=== PATIENT | female | born 1970 | race Hispanic/Latino ===

== ENCOUNTER → 2017-04-13 | Outpatient (CLI) | payer BC ==
--- NOTE | 2017-04-13 15:03 | Diagnostic Imaging Report ---
PROCEDURE: Frontal and lateral views of the chest. COMPARISON: 11/04/11 INDICATIONS: COUGH AND CHEST PAIN FINDINGS: Lines/tubes: None. Lungs: The lungs are well inflated and clear. There is no evidence of pneumonia or pulmonary edema. Pleura: There is no pleural effusion or pneumothorax. Heart and mediastinum: The heart and the mediastinum are normal. Bones: No acute bony abnormality. IMPRESSION: 1. No acute cardiopulmonary disease. Dictated by: Twin Ash M.D. on 04/13/2017 at 15:03 Electronically approved by: Twin Ash M.D. on 04/13/2017 at 15:03
== END ==
LOC: RAD 14:25
PROVIDERS: ATTEND Family Medicine
DX: R05 Cough (principal)
CPT/HCPCS: 71046

== ENCOUNTER → 2017-09-04 | Outpatient (CLI) | payer BC | LOC: MAMMO 11:02 | PROVIDERS: ATTEND Obstetrics & Gynecology | DX: Z12.31 Encounter for screening mammogram for malignant neoplasm of breast (principal) | CPT/HCPCS: 77067 ==

== ENCOUNTER 2017-12-02 05:04 | Inpatient (IN) | payer BC ==
[~2017-12-02] VITALS: Ht 167.6 cm; Wt 75.0 kg
--- OUTSIDE RECORDS SUMMARY | 2017-12-02 05:06 | XMS REPORT ---
[facility] Address Unknown Phone Unavailable Care Team Providers Care Front Desk Team Member Name Role Phone FLACA FERRER Unavailable Unavailable MEGAN MATHUR Unavailable Unavailable Problems This patient has no known problems. Allergies, Adverse Reactions, Alerts This patient has no known allergies or adverse reactions. Medications This patient has no known medications. Results Test Description Test Time Test Comments Text Results Atomic Results Result Comments MAMMOGRAPHY DIGITAL SCR BILAT 2017-09-04 12:45:00 [place] [address] Patient Name: TOMA SIMMONS MR #: [id number] : 1970 Age/Sex: 47/F Req #: [id number] [facility] Physician: Ordered by: FLACA FERRER MD Report #: [id number] Location: MAMMO Room/Bed: Procedure: [id number] MG/MAMMOGRAPHY DIGITAL SCR BILAT Exam Date: 09/04/17 Exam Time: 1106 REPORT STATUS: Signed #[id number] - [id number] #BILATERAL DIGITAL SCREENING MAMMOGRAM WITH CAD: 09/04/2017 CLINICAL: Routine screening. Comparison is made to exams dated: 05/01/2016 mammogram and 03/19/2015 mammogram - [facility]. Current study contains 8 films. There are scattered fibroglandular elements in both breasts. Current study was also evaluated with a Computer Aided Detection (CAD) system. There is a benign calcification in both breasts. Bilateral breast implants are stable. No significant masses, calcifications, or other findings are seen in either breast. There has been no significant interval change. IMPRESSION: BENIGN There is no mammographic evidence of malignancy. A 1 year screening mammogram is recommended. The patient will be notified by letter of the res ults. Howard baumann/monica:09/24/2017 07:52:32 [place]: Elena HERNANDEZ(R)(M), [facility] letter sent: Compared to Prior B9 Mammogram BI-RADS: 2 Benign Dictated By: HOWARD DENNIS DO 1 Transcribed By: MONICA on 09/24/17751 COPY TO: FLACA FERRER MD CHEST 2 VIEWS [place] [address] Patient Name: TOMA SIMMONS MR #: [id number] : 1970 Age/Sex: 46/F Req #: [id number] Adm Physician: Ordered by: MEGAN MATHUR MD, MD Report #: [id number] Location: [facility] Room/Bed: Procedure: [id number] DX/CHEST 2 VIEWS Exam Date: 04/13/17 Exam Time: 1445 REPORT STATUS: Signed PROCEDURE: Frontal and lateral views of the chest. COMPARISON: 11/04/11 INDICATIONS: COUGH AND CHEST PAIN FINDINGS: Lines/tubes: None. Lungs: The lungs are well inflated and clear. There is no evidence of pneumonia or pulmonary edema. Pleura: There is no pleural effusion or pneumothorax. Heart and mediastinum: The heart and the mediastinum are normal. Bones: No acute bony abnormality. IMPRESSION: 1. No acute cardiopulmonary disease. Dictated by: Twin Anthony M.D. on 04/13/2017 at 15:03 Electronically approved by: Twin Anthony M.D. on 04/13/2017 at 15:03 Dictated By: TWIN ANTHONY MD 1503 Transcribed By: FLORENTINO on 04/13/17 1503 COPY TO: MEGAN MATHUR
[2017-12-02] MEDS ORDERED: GENTAMICIN 80MG/NS 100 ML 200 ML IV ONE (05:14)
[2017-12-02] MEDS ORDERED: CLINDAMYCIN 600MG / 50ML 50 ML IV ONE (05:14)
[2017-12-02] MEDS ORDERED: CEFOXITIN SOD 1 GM VIAL ONE (05:14)
[2017-12-02] MEDS ORDERED: METHYLENE BLUE 1% INJ 10 ML VIAL INJ ONE (06:34)
[2017-12-02] MEDS ORDERED: IOPAMIDOL 610MG/1ML 300 MG/ML VIAL IV ONE (06:35)
[2017-12-02] MEDS ORDERED: BUPIVACAINE 0.25%/EPI 30ML SDV INJ ONE (06:35)
[2017-12-02] MEDS ORDERED: BACITRACIN 50,000 UNIT VIAL ONE (06:35)
[2017-12-02] MEDS ORDERED: MUPIROCIN 2% OINT 22 GM TUBE ONE (06:35)
[2017-12-02] MEDS ORDERED: CEFOXITIN 1GM/ NS 50ML 50 ML IV SCH (08:30)
[2017-12-02] MEDS ORDERED: NALOXONE HCL INJ 0.4 MG/ML AMP IV PRN (08:30)
[2017-12-02] MEDS ORDERED: MORPHINE SULFATE 1 MG/ML 30ML PCA IV PRN (08:30)
[2017-12-02] MEDS ORDERED: DIPHENHYDRAMINE HCL INJ 50 MG/ML VIAL IM PRN (08:30)
[2017-12-02] MEDS ORDERED: DIPHENHYDRAMINE HCL 25 MG CAP PO PRN (08:30)
[2017-12-02] MEDS ORDERED: MORPHINE SULFATE 2 MG/ML SYR ONE (08:52)
[2017-12-02 11:30] VITALS: BP 97/54
[2017-12-02 12:01] VITALS: BP 97/54
[2017-12-02] MEDS: CLINDAMYCIN 300MG 50 ML IV SCH ×2 (13:48→21:31)
[2017-12-02] MEDS: DOCUSATE SODIUM 100 MG CAP PO SCH ×2 (13:48→17:52)
[2017-12-02] MEDS: D5.45%NS/KCL 20MEQ 1,000 ML IV SCH ×3 (13:49→22:40)
[2017-12-02] MEDS ORDERED: FENTANYL CITRATE/PF 100MCG/2 ML INJ ONE (15:53)
[2017-12-02] MEDS ORDERED: MIDAZOLAM HCL 2 MG/2 ML VIAL ONE (15:53)
[2017-12-02 16:06] VITALS: BP 86/52
[2017-12-02 16:38] VITALS: BP 90/55
[2017-12-02] MEDS: CEFOXITIN SOD 1 GM VIAL IV SCH (17:52)
[2017-12-02] MEDS ORDERED: PROPOFOL IV EMULSION 10 MG/ML 20 ML VIAL ONE (18:09)
[2017-12-02] MEDS ORDERED: SEVOFLURANE INHAL SOLN 250 ML PEN BTL ONE (18:09)
[2017-12-02] MEDS ORDERED: DEXAMETHASONE SOD PHOS INJ 4 MG/ML VIAL ONE (18:09)
[2017-12-02] MEDS ORDERED: ONDANSETRON HCL INJ 2 MG/ML VIAL ONE (18:09)
[2017-12-02] MEDS ORDERED: LIDOCAINE HCL 2% LOCAL INJ 5 ML SDV VIAL INJ ONE (18:09)
[2017-12-02] MEDS ORDERED: EPHEDRINE SULFATE INJ 50 MG/10 ML SYR ONE (18:09)
[2017-12-02 20:40] VITALS: BP 99/57
[2017-12-02 20:49] VITALS: BP 99/57
[2017-12-03] VITALS (8 sets, daily range): BP systolic 86–98; BP diastolic 49–54
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
[2017-12-03 05:40] LABS: BASOPHILS % 0.3 % (0.0-1.0); EOSINOPHILS % 0.3 % (0.0-6.0); HEMOGLOBIN 9.3 g/dL (12.0-16.0); LYMPHOCYTES # (AUTO) 3.4 (1.0-3.2); LYMPHOCYTES % 21.7 % (18.0-39.1); MEAN CORPUSCULAR HEMOGLOBIN 32.3 pg (28-32); MEAN CORPUSCULAR HGB CONC 33.2 g/dL (31-35); MEAN CORPUSCULAR VOLUME 97.2 fL (81-99); MONOCYTES # (AUTO) 1.3 (0.2-0.8); MONOCYTES % 8.6 % (4.4-11.3); NEUTROPHILS # (AUTO) 10.7 (2.1-6.9); NEUTROPHILS % 68.7 % (38.7-80.0); PLATELET COUNT 310 x10e3/uL (140-360); RED BLOOD COUNT 2.88 x10e6/uL (3.6-5.1); RED CELL DISTRIBUTION WIDTH 13.6 % (11.7-14.4)
[2017-12-03] MEDS: CEFOXITIN SOD 1 GM VIAL IV SCH ×2 (05:56→17:36)
[2017-12-03 06:06] LABS: ANION GAP 12.4 mmol/L (8-16); BLOOD UREA NITROGEN 5 mg/dL (7-26); BUN/CREATININE RATIO 9 (6-25); CALCIUM 8.2 mg/dL (8.4-10.2); CARBON DIOXIDE 21 mmol/L (22-29); CHLORIDE 104 mmol/L (98-107); CREATININE, SERUM 0.56 mg/dL (0.57-1.11); EST GLOMERULAR FILTRATION RATE > 60 ML/MIN (60-); GLUCOSE 100 mg/dL (74-118); POTASSIUM 4.4 mmol/L (3.5-5.1); SODIUM 133 mmol/L (136-145)
[2017-12-03] MEDS: CLINDAMYCIN 300MG 50 ML IV SCH ×3 (06:20→21:48)
[2017-12-03] MEDS: D5.45%NS/KCL 20MEQ 1,000 ML IV SCH ×2 (08:16→18:12)
[2017-12-03] MEDS: ONDANSETRON HCL INJ 2 MG/ML VIAL IV PRN (09:01)
[2017-12-03] MEDS ORDERED: HYDROMORPHONE 2MG/ML 2 MG/ML ML IV PRN (09:15)
[2017-12-03] MEDS ORDERED: HYDROMORPHONE 1MG/1ML INJ IV PRN (09:15)
[2017-12-03] MEDS: ACETAMINOPHEN 325 MG TAB PO PRN ×3 (09:45→23:07)
[2017-12-03] MEDS: DOCUSATE SODIUM 100 MG CAP PO SCH ×2 (09:45→17:36)
[2017-12-04] VITALS (8 sets, daily range): BP systolic 83–125; BP diastolic 51–61
--- NOTE | 2017-12-04 02:01 | Progress Note ---
DATE: December 03, 2017 INTERNAL MEDICINE PROGRESS NOTE Coverage for Dr. Jeronimo. SUBJECTIVE: Mr. Bhatia was seen and examined at bedside. She continues to have ability to walk. She is on room air FiO2. She did have emesis x1. Her diet was transiently escalated to regular diet, but this was scaled back to clears. [employer] pump was just stopped. She remains on IV fluids at 125 mL per hour. REVIEW OF SYSTEMS: No headaches, no rash. OBJECTIVE: VITAL SIGNS: Afebrile, vital signs noted per electronic record. GENERAL: In no acute distress, alert and calm. HEENT: Normocephalic, atraumatic. NECK: Supple. Throat midline. LUNGS: Bilateral air entry, clear. CARDIOVASCULAR: S1, S2. No murmurs, rubs, or gallops. ABDOMEN: Soft, nontender. EXTREMITIES: No clubbing, no cyanosis, no edema. INTEGUMENT: No rash, no purpura. LABS: 5 BUN, 0.6 creatinine. 4.4 potassium, 16 white count, 28 hematocrit. IMPRESSIONS AND PLAN: 1. Postoperative state, status post cystocele repair and graft. 2. Anemia, postoperative. 3. Postoperative emesis. 4. Leukocytosis, not otherwise specified. Repeat a complete blood cell count in the morning. Continue Freed in place. Continue the intravenous fluids, supportive treatment. Scaled back to diet clears and see if she can tolerate. Possible discharge soon if she can tolerate diet. Job#: [id number]
[2017-12-04] MEDS: CEFOXITIN SOD 1 GM VIAL IV SCH ×2 (05:36→17:10)
[2017-12-04] MEDS: CLINDAMYCIN 300MG 50 ML IV SCH ×3 (05:36→22:10)
[2017-12-04] MEDS: ACETAMINOPHEN 325 MG TAB PO PRN ×3 (05:36→22:30)
[2017-12-04 05:47] LABS: BASOPHILS # (AUTO) 0.1 (0.0-0.1); BASOPHILS % 0.6 % (0.0-1.0); EOSINOPHILS # (AUTO) 0.2 (0.0-0.4); EOSINOPHILS % 2.3 % (0.0-6.0); HEMATOCRIT 27.1 % (34.2-44.1); HEMOGLOBIN 8.8 g/dL (12.0-16.0); LYMPHOCYTES # (AUTO) 3.8 (1.0-3.2); LYMPHOCYTES % 38.4 % (18.0-39.1); MEAN CORPUSCULAR HEMOGLOBIN 32.2 pg (28-32); MEAN CORPUSCULAR HGB CONC 32.5 g/dL (31-35); MEAN CORPUSCULAR VOLUME 99.3 fL (81-99); MONOCYTES # (AUTO) 1.1 (0.2-0.8); MONOCYTES % 10.5 % (4.4-11.3); NEUTROPHILS # (AUTO) 4.8 (2.1-6.9); NEUTROPHILS % 47.9 % (38.7-80.0); PLATELET COUNT 317 x10e3/uL (140-360); RED BLOOD COUNT 2.73 x10e6/uL (3.6-5.1)
[2017-12-04 06:22] LABS: ANION GAP 10.2 mmol/L (8-16); BLOOD UREA NITROGEN 5 mg/dL (7-26); BUN/CREATININE RATIO 8 (6-25); CALCIUM 8.2 mg/dL (8.4-10.2); CARBON DIOXIDE 27 mmol/L (22-29); CHLORIDE 105 mmol/L (98-107); CREATININE, SERUM 0.61 mg/dL (0.57-1.11); EST GLOMERULAR FILTRATION RATE > 60 ML/MIN (60-); GLUCOSE 88 mg/dL (74-118); POTASSIUM 4.2 mmol/L (3.5-5.1); SODIUM 138 mmol/L (136-145)
[2017-12-04] MEDS: D5.45%NS/KCL 20MEQ 1,000 ML IV SCH (09:00)
[2017-12-04] MEDS: DOCUSATE SODIUM 100 MG CAP PO SCH ×2 (09:00→17:10)
[2017-12-04] MEDS: ONDANSETRON HCL INJ 2 MG/ML VIAL IV PRN ×2 (09:00→17:10)
[2017-12-05] VITALS: BP_SYST 88; BP_SYST 97; BP_DIAS 53; BP_DIAS 54
[2017-12-05] MEDS: D5.45%NS/KCL 20MEQ 1,000 ML IV SCH ×2 (00:44→13:44)
[2017-12-05 04:00] VITALS: BP 78/48
--- NOTE | 2017-12-05 04:07 | Progress Note ---
DATE: December 04, 2017 INTERNAL MEDICINE PROGRESS NOTE Coverage for Dr. Jeronimo. SUBJECTIVE: Ms. Bhatia was seen and examined at bedside. She was able to tolerate her clear liquid diet. She remains on IV fluids 75 mL per hour. Freed has been in place. She still has mild levels of nausea, both last night and today. Patient for this reason most likely will be discharged. REVIEW OF SYSTEMS: No bleeding and no rash. OBJECTIVE VITAL SIGNS: Afebrile, vital signs noted per electronic record. GENERAL: In no acute distress, calm in bed when I see her, although she is slightly anxious. HEENT: Normocephalic, atraumatic. NECK: Supple. Throat midline. LUNGS: Bilateral air entry, clear. CARDIOVASCULAR: S1 and S2. No murmurs, rubs, or gallops. ABDOMEN: Soft and nontender. EXTREMITIES: No clubbing, no cyanosis, and no edema. INTEGUMENT: No rash and no purpura. LABS: Potassium 4.2, 5 BUN, and 0.6 creatinine. White count 10, 27 hematocrit, and 317 platelets. IMPRESSION AND PLAN 1. Cystocele urinary. 2. Postoperative state, status post cystocele repair and graft. 3. Postoperative nausea. 4. History of recurrent urinary tract infections. Patient is on clear liquid diet today. We are going to try to increase diet. Freed trial of discontinuation. Follow up postvoid residuals. Consideration to discharge the patient tomorrow even with the Freed catheter/leg bag. Continue antiemetics. Job#: [id number] GIULIA
[2017-12-05] MEDS: CEFOXITIN SOD 1 GM VIAL IV SCH (05:23)
[2017-12-05] MEDS: CLINDAMYCIN 300MG 50 ML IV SCH ×2 (05:23→14:13)
[2017-12-05 05:39] LABS: BASOPHILS # (AUTO) 0.1 (0.0-0.1); BASOPHILS % 0.4 % (0.0-1.0); EOSINOPHILS # (AUTO) 0.2 (0.0-0.4); EOSINOPHILS % 1.3 % (0.0-6.0); HEMATOCRIT 24.9 % (34.2-44.1); HEMOGLOBIN 8.2 g/dL (12.0-16.0); LYMPHOCYTES # (AUTO) 4.9 (1.0-3.2); LYMPHOCYTES % 35.5 % (18.0-39.1); MEAN CORPUSCULAR HEMOGLOBIN 32.3 pg (28-32); MEAN CORPUSCULAR HGB CONC 32.9 g/dL (31-35); MONOCYTES % 7.5 % (4.4-11.3); NEUTROPHILS # (AUTO) 7.6 (2.1-6.9); NEUTROPHILS % 54.9 % (38.7-80.0); PLATELET COUNT 341 x10e3/uL (140-360); RED BLOOD COUNT 2.54 x10e6/uL (3.6-5.1); RED CELL DISTRIBUTION WIDTH 13.6 % (11.7-14.4)
[2017-12-05 06:20] LABS: ANION GAP 9.8 mmol/L (8-16); BLOOD UREA NITROGEN 5 mg/dL (7-26); BUN/CREATININE RATIO 8 (6-25); CALCIUM 8.4 mg/dL (8.4-10.2); CARBON DIOXIDE 27 mmol/L (22-29); CHLORIDE 104 mmol/L (98-107); CREATININE, SERUM 0.61 mg/dL (0.57-1.11); EST GLOMERULAR FILTRATION RATE > 60 ML/MIN (60-); GLUCOSE 87 mg/dL (74-118); POTASSIUM 3.8 mmol/L (3.5-5.1); SODIUM 137 mmol/L (136-145)
[2017-12-05 06:43] VITALS: BP 96/62
[2017-12-05] MEDS: DOCUSATE SODIUM 100 MG CAP PO SCH (08:02)
[2017-12-05] MEDS: ACETAMINOPHEN 325 MG TAB PO PRN (08:02)
--- NOTE | 2017-12-05 08:51 | Progress Note ---
DATE: SUBJECTIVE: Patient had urinary retention yesterday. Her Freed was replaced. She is urinating well with the Freed. Patient expressed concerns about continued pain with urination. She states she does not want to go home if the Freed catheter is still in place. OBJECTIVE VITAL SIGNS: Stable. HEENT: No facial swelling. No erythema. CARDIAC: Regular rate and rhythm with a normal S1 and S2. There are no murmurs or rubs. LUNGS: Auscultation of the lungs shows clear breath sounds bilaterally. There is no wheezing. ABDOMEN: Soft and nontender. There is no rebound or guarding. EXTREMITIES: No leg edema or calf tenderness. There is no cyanosis or clubbing. IMPRESSION 1. Urinary retention. 2. Status post operative repair of the cystocele. 3. Recurrent urinary tract infections. PLAN 1. Continue antibiotics. 2. Discussed postoperative care with urology. If possible, attempt to remove the catheter again. Job#: [id number] GIULIA
[2017-12-05 09:04] VITALS: BP 94/55
[2017-12-05 13:17] VITALS: BP 103/60
[2017-12-05] MEDS ORDERED: TYLENOL WITH C1 EACH PO (14:18)
[2017-12-05] MEDS ORDERED: LEVAQUIN500 MG PO (14:19)
[2017-12-05] MEDS ORDERED: COLACE100 MG PO (14:19)
--- NOTE | 2018-01-17 23:04 | Operative Report ---
DATE OF PROCEDURE: December 02, 2017 PREOPERATIVE DIAGNOSES 1. Stress-type urinary incontinence. 2. Severe cystocele. 3. Urinary tract infections. 4. Microhematuria. POSTOPERATIVE DIAGNOSES 1. Stress-type urinary incontinence. 2. Severe cystocele. 3. Urinary tract infections. 4. Microhematuria. OPERATIONS PERFORMED 1. Repair of large cystocele. 2. Utilization of the graft and cystocele repair. 3. Pubovaginal sling utilizing homograft. 4. Cystourethroscopy with bilateral ureteral catheterization and retrograde ureteropyelography (separate procedure performed for the hematuria and urinary tract infections). 5. Interpretation of retrograde ureteropyelography. 6. Supervision of fluoroscopy. No radiologist presents. ROD PLACER: Dr. Tamara Hunter COMPLICATIONS: None. CLINICAL SUMMARY: Carol Bhatia is a 47-year-old woman with a grade-3 to 4 cystocele. She has stress incontinence, as well as microhematuria and urinary tract infections. Patient was brought for the above procedures. She is aware of the risks of bleeding, infection, injury to adjacent structures, persistent or different incontinence, need for additional procedures, urinary retention. She elected to proceed. OPERATIVE PROCEDURE IN DETAIL: Informed consent verified. Carol Bhatia was properly identified, taken to the operating room, placed on the operating table in supine position. Anesthesia was uneventfully begun. Patient was then carefully and gently repositioned in dorsal lithotomy position with all pressure points carefully well padded. Her abdomen and genitalia and perineum were shaved, prepared, and draped in usual sterile fashion. Labial stay sutures were utilized. Marcaine with epinephrine was utilized to infiltrate submucosally in the midline of the anterior vaginal wall and also, laterally along the anterior vaginal wall. A midline incision was then made. Bilateral vaginal wall flaps were developed and carried the dissection to the cephalad most extent of the anterior vaginal wall. We then pierced the endopelvic fascia bilaterally taking care to stay as laterally as possible to avoid injuring the periurethral neurovascular complexes. We then performed repair of this very large cystocele. Heavy Vicryl suture was then utilized to approximate the 2 cut edges of the endopelvic fascia. Interrupted Vicryl sutures were utilized to accomplish this repair from the bladder neck to the cephalad most extent of the vaginal dissection. This resulted in a complete reduction of the patient's large cystocele. We then utilized a piece of fascia tea that was hydrated in antibiotic irrigant. We cut it to shape and placed a heavy PDS suture in helical fashion through each end. The bladder was drained with Freed catheter and we utilized the MyCosmik needle system to hug the posterior surface of the pubis bilaterally as we pierced from within the incision through the anterior abdominal wall. We then dragged through with the needle 1 pair of PDS sutures. This was done on each side. We then utilized 3-0 chromic suture to secure the graft in such a way as to support the entire cystocele repair. We then secured the graft to the distal most portion of the urethral dissection. This was done effectively creating a pubovaginal sling. We then utilized the MyCosmik needle system lateral suture passer to take 1 strand of each PDS suture and tunnel it subcutaneously suprapubically to join its contralateral counterpart and we then tied these sutures down to the level of the patient's kidney and then allowed the knots to fall deep within the suprapubic fat pad. This was done to ensure that a non-lifting, non-constricting sling is fashioned. Copious irrigation was performed of all incisions, 4-0 Monocryl suture was utilized in interrupted subcuticular fashion to close the 2 stab wounds in the suprapubic area. The vaginal wall was trimmed minimally and it was approximated with heavy Vicryl suture in running fashion. The Freed catheter was removed. Cystoscopy was performed. Panendoscopy of the urinary bladder revealed no suspicious mucosal lesions, no tumors, no stones, no diverticula. Mild trabeculations were noted. An 8-Hungarian catheter was used to cannulate each ureter and retrograde ureteropyelographies were performed. Interpretation of retrograde ureteropyelography: Contrast was instilled in a retrograde fashion bilaterally. There were no tumors, no stones, and no diverticula. Unobstructed drainage was observed bilaterally fluoroscopically. The cystoscope withdrawn. Freed catheter was placed. Vaginal packing was placed. The labial stay sutures were removed. Sterile dressings were applied to the suprapubic area and the patient was uneventfully reversed from anesthesia and taken to recovery room in stable condition. For estimated loss, please refer to anesthetic records. Plans will be to follow the patient up during her inpatient course as we admit her for intravenous antibiotics and pain control. Job#: [id number] CQ
[2018-01-27] MEDS ORDERED: FLOMAX0.4 MG PO (14:44)
--- NOTE | 2018-02-07 13:01 | Discharge Summary ---
DISCHARGE DIAGNOSES 1. Cystocele requiring operative repair. 2. Transient urinary retention. 3. Anemia, unspecified. CONSULTING PHYSICIANS 1. Dr. Jeronimo of internal medicine. 2. Dr. Best Hunter of urology. PROCEDURES: Cystocele repair with graft sling performed in the operating room by Dr. Best Hunter. HISTORY OF PRESENT ILLNESS: The patient reports a history of frequent UTIs and dysuria. Patient had some urinary incontinence. She was subsequently diagnosed with a cystocele and scheduled for operative repair. HOSPITAL COURSE: The patient was admitted. Patient had a cystocele repair along with a graft sling performed. Postoperatively, she remained in the postsurgical unit. She had a Freed catheter in place temporarily and received IV antibiotics. A voiding trial was attempted and the Freed was subsequently removed without difficulty. Patient has had no further dysuria or hematuria at the time of discharge. DISPOSITION: Patient will be discharged home and will follow up with Dr. Best Hunter. Job#: [id number] LPA
== END 2017-12-05 15:45 | disposition home or self-care (01) | DRG 748 ==
LOC: OR 05:04 → PACU V 08:34 → MED/SURG 11:23
PROVIDERS: ADMIT Internal Medicine; ATTEND Internal Medicine
PROC: BT141ZZ Fluoroscopy of Kidneys, Ureters and Bladder using Low Osmolar Contrast (ICD-10-PCS; 2017-12-02)
PROC: 0JUC0KZ Supplement of Pelvic Region Subcutaneous Tissue and Fascia with Nonautologous Tissue Substitute, Open Approach (ICD-10-PCS; principal; 2017-12-02 07:00)
PROC: 0TSD0ZZ Reposition Urethra, Open Approach (ICD-10-PCS; 2017-12-02 07:00)
DX: N81.10 Cystocele, unspecified (principal); N39.0 Urinary tract infection, site not specified; F98.0 Enuresis not due to a substance or known physiological condition; D64.9 Anemia, unspecified; D72.829 Elevated white blood cell count, unspecified; R11.10 Vomiting, unspecified; Z87.440 Personal history of urinary (tract) infections; N39.3 Stress incontinence (female) (male); R31.0 Gross hematuria; R33.9 Retention of urine, unspecified; Z88.8 Allergy status to other drugs, medicaments and biological substances
CPT/HCPCS: 36415; 74420; 80048; 81025; 83690; 83735; 85025; J0694; J1100; J1580; J2001; J2250; J2270; J2405

== ENCOUNTER → 2018-01-29 | Day surgery (SDC) | payer BC ==
[2018-01-27 14:49] LABS: BASOPHILS # (AUTO) 0.1 (0.0-0.1); BASOPHILS % 0.7 % (0.0-1.0); EOSINOPHILS # (AUTO) 0.2 (0.0-0.4); EOSINOPHILS % 1.5 % (0.0-6.0); HEMATOCRIT 38.6 % (34.2-44.1); HEMOGLOBIN 12.4 g/dL (12.0-16.0); LYMPHOCYTES # (AUTO) 4.1 (1.0-3.2); LYMPHOCYTES % 36.7 % (18.0-39.1); MEAN CORPUSCULAR HEMOGLOBIN 31.9 pg (28-32); MEAN CORPUSCULAR HGB CONC 32.1 g/dL (31-35); MEAN CORPUSCULAR VOLUME 99.2 fL (81-99); MONOCYTES # (AUTO) 0.8 (0.2-0.8); MONOCYTES % 7.5 % (4.4-11.3); NEUTROPHILS # (AUTO) 5.9 (2.1-6.9); NEUTROPHILS % 53.5 % (38.7-80.0); PLATELET COUNT 380 x10e3/uL (140-360); RED BLOOD COUNT 3.89 x10e6/uL (3.6-5.1); RED CELL DISTRIBUTION WIDTH 13.9 % (11.7-14.4)
[2018-01-27 15:18] LABS: ALANINE AMINOTRANSFERASE 11 IU/L (0-55); ALBUMIN 3.8 g/dL (3.5-5.0); ALBUMIN/GLOBULIN RATIO 1.1 (0.8-2.0); ALKALINE PHOSPHATASE 69 IU/L (40-150); ANION GAP 13.4 mmol/L (8-16); BLOOD UREA NITROGEN 12 mg/dL (7-26); BUN/CREATININE RATIO 17 (6-25); CALCIUM 9.1 mg/dL (8.4-10.2); CARBON DIOXIDE 25 mmol/L (22-29); CHLORIDE 105 mmol/L (98-107); CREATININE, SERUM 0.69 mg/dL (0.57-1.11); EST GLOMERULAR FILTRATION RATE > 60 ML/MIN (60-); GLUCOSE 95 mg/dL (74-118); POTASSIUM 4.4 mmol/L (3.5-5.1); SODIUM 139 mmol/L (136-145)
[~2018-01-29] MED LIST: BACITRACIN 50,000 UNIT VIAL ONE; BUPIVACAINE 0.5%/EPI 30 ML SDV INJ ONE; CEFOXITIN SOD 1 GM VIAL ONE; CLINDAMYCIN 600MG / 50ML 50 ML IV ONE; COLACE100 MG PO; DEXAMETHASONE SOD PHOS INJ 4 MG/ML VIAL ONE; FENTANYL CITRATE/PF 100MCG/2 ML INJ ONE; FLOMAX0.4 MG PO; GENTAMICIN 80MG/NS 100 ML 200 ML IV ONE; HYDROMORPHONE 2MG/ML 2 MG/ML ML ONE; LEVAQUIN500 MG PO; LIDOCAINE HCL 2% LOCAL INJ 5 ML SDV VIAL INJ ONE; METOCLOPRAMIDE HCL 10 MG/2ML VIAL ONE; MUPIROCIN 2% OINT 22 GM TUBE ONE; ONDANSETRON HCL INJ 2MG/ML 2ML 2 MG/ML VIAL ONE; PROMETHAZINE HCL (IM) 25 MG/ML VIAL ONE; PROPOFOL IV EMULSION 10 MG/ML 20 ML VIAL ONE; SEVOFLURANE INHAL SOLN 250 ML PEN BTL ONE; TYLENOL WITH C1 EACH PO
[2018-01-29 21:15] VITALS: BP 101/60
--- NOTE | 2018-01-29 22:39 | Operative Report ---
DATE OF PROCEDURE: January 29, 2018 PREOPERATIVE DIAGNOSIS: Bladder outlet obstruction. POSTOPERATIVE DIAGNOSIS: Bladder outlet obstruction. PROCEDURES PERFORMED: 1. Revision of pubovaginal sling and cystocele repair graft by mobilization and incision in the midline. 2. Urethrolysis. 3. Cystourethroscopy with bilateral ureteral catheterization and retrograde ureteropyelography. 4. Interpretation of retrograde ureteropyelography. 5. Supervision of fluoroscopy, no radiologist present. ANESTHESIA: General. COMPLICATIONS: None. CLINICAL SUMMARY: Carol Bhatia is a 47-year-old woman who had a severe grade 3 cystocele. She also has stress type urinary incontinence. The patient had undergone approximately 1-1/2 months ago a reconstructive procedure including repair of a very large cystocele. We utilized a graft in that cystocele repair and we performed a pubovaginal sling utilizing fascia tea. The patient postoperatively was in urinary retention. She was managed with intermittent catheterizations and started to void. Her residuals have progressively decreased; however, urodynamic study revealed a high pressure bladder. The patient was voiding with a high voiding pressure with a low urinary force of stream. The patient also reports instability of her bladder with new onset urge incontinence. She is elected to proceed with procedure today as planned. She understands the risks of bleeding, infection, injury to adjacent structures, need for additional incontinence surgery later, modification or worsening of her existing urinary incontinence. She also understands the usual attendant risks of surgery and anesthesia which she was encouraged to discuss with the anesthesiologist preoperatively. She understood all these risks and elected to proceed. OPERATIVE PROCEDURE IN DETAIL: Informed consent was verified. Carol Bhatia was properly identified, taken to the operating room, placed on the operative table in supine position. Anesthesia was uneventfully begun. The patient then carefully and gently repositioned in the dorsal lithotomy position with all pressure points well padded. Her abdomen and genitalia and buttocks were prepared and draped in usual sterile fashion. Labial stay sutures were utilized. We infiltrated the anterior vaginal wall submucosally with Marcaine with epinephrine. We then made a midline incision, developed bilateral vaginal wall flaps. We identified the fascia tea graft and sling and saw that it was in an appropriate position. Despite the fact that we placed a clamp between the sling and the urethra at the original surgery, the graft appeared to be more adherent to the urethra. There was a tightening of the graft from the way that we left to tie it. We isolated the graft and split it in the midline and we extended that split throughout the extent of the graft to the midline of the cephalad most portion of the anterior vaginal wall. This resulted in a release of the patient's cystocele from the lack of cystocele with excellent support that we had preoperatively today to a grade 1 cystocele. Copious irrigation was performed with antibiotic irrigant. We then mobilized the urethra on either side by careful dissection taking care to stay lateral to the urethra in order to avoid any injury to the periurethral neurovascular complex. The urethra was not mobilized anteriorly, but only on either side. It appeared soft and healthy. Copious irrigation was performed. The patient's incision was then approximated with heavy Vicryl suture in an interrupted fashion. The Freed catheter that we placed prior to incision was then removed. Cystoscopy was Panendoscopy of the urinary bladder revealed no suspicious gross lesions, no tumors, no stones and no diverticula. Normally positioned and configured ureteral orifices were identified. There were at least grade 1 trabeculations noted throughout the bladder consistent with long-standing bladder outlet obstruction that preceded the prior surgery. An 8-Mongolian catheter was used to cannulate the urethra and retrograde ureteral pyelogram was performed. Interpretation of retrograde ureteropyelography: Contrast was instilled and retroflexed bilaterally. There were no tumors, no stones and no diverticula, no obstructed drainage was observed bilaterally fluoroscopically. The cystoscope was withdrawn. Freed catheter was placed. It was irrigated to and fro to ensure it worked properly. Vaginal packing was placed including antibiotic ointment. Labial stay sutures were removed. The patient was then eventually reversed from anesthesia and taken to recovery room in stable condition. There were no complications during this procedure. The patient tolerated the procedure well. Sponge, needle, and instrument counts were close to correct x2 at the end of case. Estimated blood loss was less than 50 mL. Plans will be to discharge the patient home with a Freed catheter in place. The patient is to remove her own Freed catheter on Thursday and then monitor her voiding. The patient is well equipped to handle any urinary retention as she has been doing intermittent catheterizations. We will of course continue to monitor this patient's progress. Job#: [id number] PUN
== END | disposition home or self-care (01) ==
LOC: OR 12:05
PROVIDERS: ATTEND Urology
DX: N32.0 Bladder-neck obstruction (principal); N39.46 Mixed incontinence; N81.10 Cystocele, unspecified; N32.89 Other specified disorders of bladder; Z88.1 Allergy status to other antibiotic agents; Z01.812 Encounter for preprocedural laboratory examination
CPT/HCPCS: 36415; 52005; 53500; 57287; 74420; 80053; 81025; 85025; C1758; J0694; J1100; J1170; J1580; J2001; J2405; J2550; J2704; J2765

== ENCOUNTER → 2018-07-13 | Outpatient (CLI) | payer BC ==
[~2018-07-13] MED LIST changes: -BACITRACIN 50,000 UNIT VIAL ONE; -BUPIVACAINE 0.5%/EPI 30 ML SDV INJ ONE; -CEFOXITIN SOD 1 GM VIAL ONE; -CLINDAMYCIN 600MG / 50ML 50 ML IV ONE; -DEXAMETHASONE SOD PHOS INJ 4 MG/ML VIAL ONE; -FENTANYL CITRATE/PF 100MCG/2 ML INJ ONE; -GENTAMICIN 80MG/NS 100 ML 200 ML IV ONE; -HYDROMORPHONE 2MG/ML 2 MG/ML ML ONE; -LIDOCAINE HCL 2% LOCAL INJ 5 ML SDV VIAL INJ ONE; -METOCLOPRAMIDE HCL 10 MG/2ML VIAL ONE; -MUPIROCIN 2% OINT 22 GM TUBE ONE; -ONDANSETRON HCL INJ 2MG/ML 2ML 2 MG/ML VIAL ONE; -PROMETHAZINE HCL (IM) 25 MG/ML VIAL ONE; -PROPOFOL IV EMULSION 10 MG/ML 20 ML VIAL ONE; -SEVOFLURANE INHAL SOLN 250 ML PEN BTL ONE
--- NOTE | 2018-07-13 12:36 | Diagnostic Imaging Report ---
Exam: Left heel 2 views History: Heel pain Comparison: None. Findings: No acute displaced fracture. Mild degenerative plantar and posterior calcaneal spur. Joint space is well-maintained. Soft tissues unremarkable. Impression: No acute osseous abnormality. Degenerative plantar and posterior calcaneal spur. Signed by: Dr. Mianor Thomas M.D. on 07/13/2018 12:33 PM
== END ==
LOC: RAD 11:47
PROVIDERS: ATTEND Family Medicine
DX: M79.672 Pain in left foot (principal); M89.8X7 Other specified disorders of bone, ankle and foot

== ENCOUNTER → 2018-08-05 | Outpatient (CLI) | payer BC ==
--- NOTE | 2018-08-05 14:08 | Diagnostic Imaging Report ---
Renal ultrasound. History: Hematuria Discussion: Transverse and longitudinal images of the kidneys were obtained demonstrating normal renal sizes and echogenicities. There is no evidence of hydronephrosis, mass or renal calculus. The right kidney measures 11.4 x 4.4 x 4.4 cm with maximal cortical thickness of 1.4 cm. The left kidney measures 10.9 x 5.3 x 4.6 cm with maximal cortical thickness of 1.4 cm. There is a superior pole right renal cyst measuring 1.1 x 1.2 x 1.1 cm. The urinary bladder is unremarkable with an estimated volume of 441 cc. Bilateral ureteral jets are noted.. There is no evidence of free fluid. IMPRESSION: Right upper pole renal cyst. Signed by: Dr. Martin Almaraz DO on 08/05/2018 2:05 PM
== END ==
LOC: US 11:09
PROVIDERS: ATTEND Urology
DX: R31.0 Gross hematuria (principal)
CPT/HCPCS: 76770

== ENCOUNTER → 2019-06-28 | Outpatient (CLI) | payer BC ==
--- NOTE | 2019-06-28 15:18 | Diagnostic Imaging Report ---
TECHNIQUE: 5 views of the lumbar spine HISTORY: ^LUMBAR SPINE PAIN. COMPARISON: None. IMPRESSION: Limited due to motion. Leftward curvature centered at L3. No acute displaced fracture or dislocation. Joint spaces are within normal limits. Probable lower lumbar spine facet arthropathy. Soft tissues are grossly unremarkable. Signed by: Brian Cates MD on 06/28/2019 3:14 PM
== END ==
LOC: RAD 14:08
PROVIDERS: ATTEND Family Medicine
DX: M54.5 Low back pain (principal)
CPT/HCPCS: 72110

== ENCOUNTER → 2020-02-15 | Outpatient (CLI) | payer OTHER | LOC: MAMMO 10:45 | PROVIDERS: ATTEND Obstetrics & Gynecology | DX: Z12.31 Encounter for screening mammogram for malignant neoplasm of breast (principal) | CPT/HCPCS: 77067 ==

== ENCOUNTER → 2021-02-19 | Outpatient (CLI) | payer BC | LOC: MAMMO 09:35 | PROVIDERS: ATTEND Obstetrics & Gynecology | DX: Z12.31 Encounter for screening mammogram for malignant neoplasm of breast (principal) | CPT/HCPCS: 77067 ==

== ENCOUNTER → 2022-02-25 | Outpatient (CLI) | payer BC | LOC: MAMMO 09:36 | PROVIDERS: ATTEND Obstetrics & Gynecology | DX: Z12.31 Encounter for screening mammogram for malignant neoplasm of breast (principal) | CPT/HCPCS: 77067 ==

== ENCOUNTER → 2024-04-05 | Outpatient (REF) | payer BC | LOC: MAMMO 11:40 | PROVIDERS: ATTEND Obstetrics & Gynecology | DX: Z12.31 Encounter for screening mammogram for malignant neoplasm of breast (principal) | CPT/HCPCS: 77067 ==